=== PATIENT | male | born 1995 | race Caucasian/White ===

== ENCOUNTER 2023-08-12 15:51 | Emergency (ER) | payer SELFPAY ==
[~2023-08-12] VITALS: Ht 180.3 cm; Wt 95.2 kg
[2023-08-12 15:59] VITALS: BP 150/84
== END 2023-08-12 17:05 | disposition home or self-care (01) ==
LOC: ER 15:51
DX: J02.9 Acute pharyngitis, unspecified (principal); Z91.013 Allergy to seafood
CPT/HCPCS: 87081; 87430; 99283; J1100